=== PATIENT | female | born 1945 | race African-American/Black ===

== ENCOUNTER 2022-01-25 06:18 | Emergency (ER) | payer OTHER ==
[~2022-01-25] VITALS: Ht 172.7 cm; Wt 82.0 kg
[2022-01-25 07:20] LABS: BASOPHILS % 0.1 % (0.0-2.0); EOSINOPHILS % 0.2 % (0.0-5.0); HEMOGLOBIN. 10.5 g/dL (12.0-16.0); LYMPHOCYTES % 13.7 % (20.0-50.0); MEAN CORPUSCULAR VOLUME 92.6 fL (81.0-99.0)
[2022-01-25 07:23] LABS: HEMATOCRIT. 32.2 % (36.0-48.0); MEAN CORPUSCULAR HEMOGLOBIN 30.1 pg (28.0-32.0); MEAN PLATELET VOLUME 9.2 fl (7.4-10.4); MONOCYTES % 7.9 % (2.0-8.0); NEUTROPHILS % 78.1 % (40.0-76.0); PLATELET 228 x1000/uL (130-400); RED BLOOD CELL COUNT 3.47 mill/uL (4.2-5.4); RED CELL DISTRIBUTION WIDTH 15.3 % (11.6-14.6)
[2022-01-25 07:36] LABS: CHLORIDE 108 mEq/L (98-107)
[2022-01-25 08:10] LABS: INR 1.1; PROTHROMBIN TIME 11.5 sec (9.6-11.0)
[2022-01-25] MEDS ORDERED: ACETAMINOPHEN 325MG TABLET PO ONE (09:00)
[2022-01-25] MEDS ORDERED: PANTOPRAZOLE SODIUM 40 MG/VIAL IV STA (09:29)
[2022-01-25 09:34] LABS: CLARITY URINE CLEAR (CLEAR); COLOR URINE YELLOW (YELLOW); KETONES URINE TRACE (NEGATIVE); LEUKOCYTE ESTERASE URINE NEGATIVE (NEGATIVE); NITRITE URINE NEGATIVE (NEGATIVE); OCCULT BLOOD URINE NEGATIVE (NEGATIVE); PROTEIN URINE TRACE (NEGATIVE); SPECIFIC GRAVITY URINE 1.024 (1.005-1.030)
[2022-01-25 10:25] VITALS: BP 105/72
== END 2022-01-25 10:45 | disposition short-term general hospital (02) ==
LOC: ER 06:18 → CANBEDREQ 08:35 → ER 10:45
DX: K92.0 Hematemesis (principal); R10.9 Unspecified abdominal pain; E11.9 Type 2 diabetes mellitus without complications; Z88.0 Allergy status to penicillin
CPT/HCPCS: 36415; 74176; 80053; 81003; 83690; 85025; 85610; 86850; 86900; 86901; 93005; 96374; 99285; C9113